=== PATIENT | female | born 1980 | race Caucasian/White ===

== ENCOUNTER 2018-02-09 07:42 | Emergency (ER) | payer OTHER ==
[~2018-02-09] VITALS: Ht 152.4 cm; Wt 68.0 kg
--- NOTE | 2018-02-09 08:08 | ED GENERAL ADULT ---
History of Present Illness General Chief Complaint: ETOH/Drug Related Complaint Stated Complaint: HIGHWATCH CLEARANCE Source: patient, family Exam Limitations: no limitations Vital Signs & Intake/Output Vital Signs & Intake/Output Vital Signs Date Time Temp Pulse Resp B/P B/P Pulse O2 O2 Flow FiO2 Mean Ox Delivery Rate 02/09 1652 98.2 86 20 120/82 02/09 1558 98.2 86 20 120/82 99 Room Air 02/09 1205 97.9 83 16 118/73 02/09 1147 97.9 83 18 118/73 98 Room Air 02/09 0755 98.8 114 16 131/89 98 Room Air Allergies Coded Allergies: amoxicillin (RASH 02/09/18) Reconcile Medications Fluoxetine HCl 20 MG CAPSULE 1 CAP PO DAILY ANXIETY/DEPRESSION (Reported) Triage Note: PT PRESENTS TO THE ER FOR HIGH WATCH CLEARANCE. PT STATES THAT HER LAST DRINK WAS THIS AM VODKA. PT STATES THAT SHE DRINKS ON AVERAGE 2 PINTS A DAY FOR THE LAST MONTH..PT LEFT HIGHWATCH December, PT WAS SOBER 6 YEARS THEN MAR 28, PER PT THINGS GOT HORRIBLE. PT STATES THAT SHE HAS NO HISTORY OF SEIZURES. Triage Nurses Notes Reviewed? yes HPI: Patient presents to the emergency department requesting clearance to go to [facility] for alcohol rehabilitation. Patient has been drinking up to 2 points of vodka per day. Patient went through alcohol rehabilitation recently but then started drinking again. Patient denies coingestions. The patient denies any suicidal or homicidal ideations. Patient's last record was prior to arrival. Past History Travel History Traveled to [place] past 21 day No Medical History Any Pertinent Medical History? see below for history Psychiatric: depression Surgical History Surgical History: non-contributory Psychosocial History Tobacco Use: Never used ETOH Use: heavy use, alcoholic Illicit Drug Use: denies illicit drug use Family History Hx Contributory? No Review of Systems Review of Systems Constitutional: Reports: no symptoms. EENTM: Reports: no symptoms. Respiratory: Reports: no symptoms. Cardiovascular: Reports: no symptoms. GI: Reports: no symptoms. Genitourinary: Reports: no symptoms. Musculoskeletal: Reports: no symptoms. Skin: Reports: no symptoms. Neurological/Psychological: Reports: no symptoms. Hematologic/Endocrine: Reports: no symptoms. Immunologic/Allergic: Reports: no symptoms. All Other Systems: Reviewed and Negative Physical Exam Physical Exam General Appearance: well developed/nourished, alert, awake, intoxicated Head: atraumatic, normal appearance Eyes: Bilateral: PERRL, EOMI, other (SLUGGISH). Ears, Nose, Throat: normal pharynx, normal ENT inspection, hearing grossly normal Neck: normal inspection, supple, full range of motion Respiratory: normal breath sounds, chest non-tender, no respiratory distress, lungs clear Cardiovascular: regular rate/rhythm, normal peripheral pulses Gastrointestinal: normal bowel sounds, soft, non-tender, no organomegaly Back: normal inspection Extremities: normal inspection, normal capillary refill, normal range of motion, no edema Neurologic/Psych: no motor/sensory deficits, awake, alert, oriented x 3, normal gait, normal mood/affect Skin: intact, normal color, warm/dry Lymphatic: no anterior cervical hcris Core Measures ACS in differential dx? No CVA/TIA Diagnosis: No Sepsis Present: No Sepsis Focused Exam Completed? No Progress Differential Diagnoses I considered the following diagnoses in my evaluation of the patient: [Alcohol dependency, alcohol intoxication, alcohol abuse, alcohol withdrawal] Plan of Care: Orders Procedure Date/time Status Regular Diet 02/09 L Active Regular Diet 02/09 B Complete Add-on Test (ER Only) 02/09 0824 Active HUMAN BETA HCG SCREEN 02/09 0820 Complete CIWA 02/09 0747 Active URINE DRUG SCREEN FOR ER ONLY 02/09 0747 Complete URINALYSIS 02/09 0747 Complete TSH REFLEX 02/09 0747 Complete MAGNESIUM 02/09 0747 Complete ETHANOL 02/09 0747 Complete COMPREHENSIVE METABOLIC PANEL 02/09 0747 Complete CBC WITHOUT DIFFERENTIAL 02/09 0747 Complete Current Medications Sig/Abrahan Start time Last Medication Dose Stop Time Status Admin Fluoxetine HCl 20 MG DAILY 02/09 0900 UNVr 02/09 (Prozac) 0916 Laboratory Tests 02/09/18 1224: Urine Opiates Screen < 100, Methadone Screen < 40, Barbiturate Screen < 60, Ur Phencyclidine Scrn < 6.00, Amphetamines Screen < 100, U Benzodiazepines Scrn < 85, Urine Cocaine Screen < 50, Urine Cannabis Screen < 5.00, Urine Color YEL, Urine Clarity CLEAR, Urine pH 6.5, Ur Specific [place] 1.025, Urine Protein NEG, Urine Ketones NEG, Urine Nitrite NEG, Urine Bilirubin NEG, Urine Urobilinogen 0.2, Ur Leukocyte Esterase NEG, Ur Microscopic SEDIMENT EXAMINED, Urine RBC 1-3, Ur Epithelial Cells MOD H, Urine Bacteria MOD H, Urine Hemoglobin SMALL H, Urine Glucose NEG 02/09/18 0820: Anion Gap 12, Estimated GFR > 60, BUN/Creatinine Ratio 22.9, Glucose 85, Calcium 9.4, Magnesium 1.9, Total Bilirubin 0.3, AST 34, ALT 31, Alkaline Phosphatase 48 , Total Protein 7.6, Albumin 4.8, Globulin 2.8, Albumin/Globulin Ratio 1.7, TSH &T3 &Free T4 Intrp 0.778, Total Beta HCG NEGATIVE, CBC w Diff NO MAN DIFF REQ, RBC 4.19 L, MCV 93.6, MCH 32.8 H, MCHC 35.0, RDW 15.4 H, MPV 7.0 L, Gran % 58.6, Lymphocytes % 33.2, Monocytes % 7.2, Eosinophils % 0.5, Basophils % 0.5, Absolute Granulocytes 4.5, Absolute Lymphocytes 2.6, Absolute Monocytes 0.6, Absolute Eosinophils 0, Absolute Basophils 0, Serum Alcohol 180.0 Initial ED EKG: none Departure Departure Disposition: STILL A PATIENT Condition: Stable Clinical Impression Primary Impression: Alcohol abuse Referrals: Patient Has No Primary Care Dr (PCP/Family) Additional Instructions: He has been cleared to go to [email or web address] for alcohol rehabilitation. Return to the emergency department for any concerns. Departure Forms: Customer Survey General Discharge Information Critical Care Note Critical Care Note Critical Care Time: non-applicable
[2018-02-09] MEDS ORDERED: FLUOXETINE HCL20 M2 PO (08:29)
[2018-02-09 08:43] LABS: ABSOLUTE BASOPHIL COUNT 0 /CUMM (0.0-0.2); ABSOLUTE EOSINOPHIL COUNT 0 /CUMM (0.0-0.7); ABSOLUTE GRANULOCYTE CT 4.5 /CUMM (1.4-6.5); ABSOLUTE LYMPH COUNT 2.6 /CUMM (1.2-3.4); ABSOLUTE MONOCYTE COUNT 0.6 /CUMM (0.10-0.60); BASOPHIL % 0.5 % (0.0-2.0); EOSINOPHIL % 0.5 % (0-5); GRANULOCYTE % 58.6 % (42.2-75.2); HEMATOCRIT 39.2 % (37-47); MEAN CORPUSCULAR HGB 32.8 PG (27.0-31.0); MEAN CORPUSCULAR VOLUME 93.6 FL (81.0-99.0); PLATELET COUNT 280 /CUMM (130-400); RBC DISTRIBUTION WIDTH 15.4 % (11.5-14.5); RED BLOOD CELL CT 4.19 /CUMM (4.20-5.40); WHITE BLOOD CELL COUNT 7.7 /CUMM (4.8-10.8)
[2018-02-09 19:26] VITALS: BP 128/76
== END 2018-02-09 19:30 ==
LOC: ERH 07:42
PROVIDERS: Emergency Medicine
DX: F10.10 Alcohol abuse, uncomplicated (principal); F32.9 Major depressive disorder, single episode, unspecified
CPT/HCPCS: 80307; 81001; G0480